=== PATIENT | male | born 1980 ===

== ENCOUNTER 2016-08-27 03:34 | Inpatient (IN) | payer OTHER ==
[~2016-08-27] VITALS: Ht 152.4 cm; Wt 87.1 kg
[2016-08-27 05:12] VITALS: BP 116/53; PULSE 50; TEMP 98.7
[2016-08-27 09:46] LABS: BASO # 0.1 (0.0-0.2); BASO % 0.5 % (0.0-2.0); EOS # 0.1 (0.0-0.7); EOS % 0.9 % (0-4.0); GRAN # 8.5 (1.4-6.5); GRAN % 79.7 % (42.2-75.2); HEMATOCRIT 46.3 % (42.0-52.0); HEMOGLOBIN 14.9 g/dl (13.5-18.0); LYMPH # 1.1 (1.2-3.4); LYMPH % 10.5 % (20.0-51.0); MEAN CELL VOLUME 87 fl (80.0-100.0); MEAN CORPUSCULAR HEMOGLOBIN 28 pg (27.0-31.0); MEAN CORPUSCULAR HGB CONC 32 g/dl (33.0-37.0); MEAN PLATELET VOLUME 9.4 fl (7.4-10.4); MONO # 0.9 (0.1-0.6); MONO % 8.2 % (1.7-9.3); PLATELET COUNT 304 K/mm3 (130-400); RED BLOOD COUNT 5.31 M/mm3 (4.20-5.60); REDCELL DISTRIBUTION WIDTH-CV 13.9 % (11.5-14.5); WHITE BLOOD COUNT 10.6 K/mm3 (4.8-10.8)
[2016-08-27 14:03] VITALS: BP 103/57; PULSE 67; TEMP 97.8
[2016-08-27 17:36] VITALS: BP 133/71; PULSE 53; TEMP 98.2
[2016-08-27 21:10] VITALS: BP 117/54; PULSE 68; TEMP 98.5
[2016-08-28 06:08] VITALS: BP 131/48; PULSE 67; TEMP 98.8
[2016-08-28 08:25] LABS: BASO % 0.6 % (0.0-2.0); EOS # 0.1 (0.0-0.7); EOS % 2.1 % (0-4.0); GRAN # 3.9 (1.4-6.5); GRAN % 59.8 % (42.2-75.2); HEMATOCRIT 41.5 % (42.0-52.0); HEMOGLOBIN 13.2 g/dl (13.5-18.0); LYMPH % 29.8 % (20.0-51.0); MEAN CELL VOLUME 89 fl (80.0-100.0); MEAN CORPUSCULAR HEMOGLOBIN 28 pg (27.0-31.0); MEAN CORPUSCULAR HGB CONC 32 g/dl (33.0-37.0); MONO # 0.5 (0.1-0.6); MONO % 7.5 % (1.7-9.3); PLATELET COUNT 244 K/mm3 (130-400); RED BLOOD COUNT 4.68 M/mm3 (4.20-5.60); REDCELL DISTRIBUTION WIDTH-CV 13.8 % (11.5-14.5); WHITE BLOOD COUNT 6.6 K/mm3 (4.8-10.8)
[2016-08-28 08:48] LABS: CALCIUM 8.6 mg/dL (8.4-10.2); CREATININE, serum 1.07 mg/dL (0.66-1.25); POTASSIUM 3.6 mmol/L (3.4-5.0)
[2016-08-28 08:55] VITALS: BP 144/70; PULSE 95; TEMP 98.2
[2016-08-28 13:53] VITALS: BP 128/76; PULSE 65; TEMP 97.5
== END 2016-08-28 17:40 | disposition home or self-care (01) | DRG 390 ==
LOC: SURG 03:34 → EDSTATUS 05:02 → SURG 08-28 17:40
PROVIDERS: Surgery
PROC: 0D9670Z Drainage of Stomach with Drainage Device, Via Natural or Artificial Opening (ICD-10-PCS; principal; 2016-08-27)
DX: K56.60 Unspecified intestinal obstruction (principal)
CPT/HCPCS: J1170; J1885; J2405; J7030